=== PATIENT | female | born 1970 | race American Indian/Alaskan Native ===

== ENCOUNTER 2017-03-09 09:03 | Emergency (ER) | payer MEDICAID, OTHER ==
[2017-03-09 10:12] VITALS: BP 155/90
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
== END 2017-03-09 14:51 | disposition home or self-care (01) ==
LOC: ED 09:03
DX: M54.16 Radiculopathy, lumbar region (principal)
CPT/HCPCS: 99281

== ENCOUNTER 2018-05-08 04:45 | Emergency (ER) | payer OTHER ==
[2018-05-08 07:59] LABS: Basophils % (Auto) 0.6 % (0.0-1.8); Eosinophils # (Auto) 0.1 K/mm3 (0.0-0.4); Eosinophils % (Auto) 1.5 % (0.0-4.3); Hematocrit 37.8 % (30.3-42.9); Hemoglobin 12.3 gm/dl (10.1-14.3); Lymphocytes % (Auto) 37.2 % (13.4-35.0); Mean Corpuscular HGB Conc 33 % (30-34); Mean Corpuscular Hemoglobin 26 pg (28-32); Mean Corpuscular Volume 81 fl (79-97); Monocytes # (Auto) 0.3 K/mm3 (0.0-0.8); Monocytes % (Auto) 6.5 % (0.0-7.3); Platelet Count 311 K/mm3 (140-440); Red Blood Count 4.66 M/mm3 (3.65-5.03); Red Cell Distribution Width 15.2 % (13.2-15.2)
[2018-05-08 08:24] LABS: BUN/Creatinine Ratio 22; Blood Urea Nitrogen 13 mg/dL (7-17); Calcium 9.3 mg/dL (8.4-10.2); Hemolysis Index 15
--- NOTE | 2018-05-08 11:00 | Emergency Department Report ---
ED Chest Pain HPI - General Chief Complaint: Chest Pain Stated Complaint: CP Time Seen by Provider: 05/08/18 10:45 Source: patient, EMS Mode of arrival: Ambulatory Limitations: No Limitations - History of Present Illness Initial Comments: 47 yo female, hx of hypothyroidism, with left-sided chest pain 1 month. Patient reports pain feels like a pulled muscle. Patient presented ED this morning because pain moved from left anterior chest left lateral chest on yesterday. Reports same character of pain. States pain wprse w/ palpation and laying on left side. Denies shortness of breath, cough, fever, leg pain, leg swelling, nausea, vomiting, diaphoresis. Patient states she does a lot of lifting of her 4-year-old son and also large bags of laundry which may have contributed to her pain. PCP: Dr Bhupendra SANDOVAL Complaint: chest pain -: month(s) (1) Onset: during rest Pain Location: left chest Pain Radiation: none Severity: mild Quality: pressure ("like I pulled a muscle") Consistency: intermittent Improves With: rest Worsens With: palpation re: denies: nausea, vomting, diaphoresis, dyspnea Other Symptoms: denies: cough, fever, palpitations Treatments Prior to Arrival: none - Related Data Previous Rx's Medication Instructions Recorded Last Taken Type Cetirizine HCl [All Day Allergy] 10 mg PO DAILY #30 capsule 08/14/16 Unknown Rx Diclofenac Potassium 50 mg PO BID #30 tablet 03/09/17 Unknown Rx traMADol [Ultram 50 MG tab] 50 mg PO Q6HR PRN #20 tablet 03/09/17 Unknown Rx Methocarbamol [Robaxin-750] 750 mg PO Q6HR PRN #20 tablet 05/08/18 Unknown Rx Naproxen [Naprosyn] 500 mg PO BID #20 tablet 05/08/18 Unknown Rx Triamcinolone 0.1% [Kenalog 0.1% 1 applic TP TID PRN #1 tube 05/08/18 Unknown Rx CREAM] Allergies Allergy/AdvReac Type Severity Reaction Status Date / Time No Known Allergies Allergy Verified 10/24/13 11:23 Heart Score - HEART Score History: Slightly suspicious EKG: Normal Age: 45-65 Risk factors: No known risk factors Troponin: < normal limit HEART Score: 1 - Critical Actions Critical Actions: 0-3 pts:0.9-1.7%risk of adverse cardiac event.Candidate for discharge ED Review of Systems ROS: Stated complaint: CP Other details as noted in HPI Comment: All other systems reviewed and negative Constitutional: denies: chills, diaphoresis, fever Respiratory: denies: cough, shortness of breath Cardiovascular: chest pain. denies: palpitations Gastrointestinal: denies: abdominal pain, nausea, vomiting Skin: rash ED Past Medical Hx - Past Medical History Previous Medical History?: Yes Hx Hypertension: No Hx Congestive Heart Failure: No Hx Diabetes: No Hx Deep Vein Thrombosis: No Hx Renal Disease: No Hx Sickle Cell Disease: No Hx Seizures: No Hx Asthma: No Hx COPD: No Hx HIV: No Additional medical history: hypothyroidism - Surgical History Past Surgical History?: Yes Additional Surgical History: left wrist, left foot - Social History Smoking Status: Never Smoker Substance Use Type: None - Medications Home Medications: Home Medications Medication Instructions Recorded Confirmed Last Taken Type Cetirizine HCl [All Day Allergy] 10 mg PO DAILY #30 capsule 08/14/16 Unknown Rx Diclofenac Potassium 50 mg PO BID #30 tablet 03/09/17 Unknown Rx traMADol [Ultram 50 MG tab] 50 mg PO Q6HR PRN #20 tablet 03/09/17 Unknown Rx Methocarbamol [Robaxin-750] 750 mg PO Q6HR PRN #20 tablet 05/08/18 Unknown Rx Naproxen [Naprosyn] 500 mg PO BID #20 tablet 05/08/18 Unknown Rx Triamcinolone 0.1% [Kenalog 0.1% 1 applic TP TID PRN #1 tube 05/08/18 Unknown Rx CREAM] ED Physical Exam - General Limitations: No Limitations General appearance: alert, in no apparent distress - Head Head exam: Present: atraumatic, normocephalic - Eye Eye exam: Present: normal appearance - ENT ENT exam: Present: mucous membranes moist - Neck Neck exam: Present: normal inspection - Respiratory Respiratory exam: Present: normal lung sounds bilaterally. Absent: respiratory distress - Cardiovascular Cardiovascular Exam: Present: regular rate, normal rhythm, other (tenderness to left anterior and left lateral chest wall) - GI/Abdominal GI/Abdominal exam: Present: soft. Absent: distended, tenderness - Extremities Exam Extremities exam: Present: normal inspection, full ROM. Absent: pedal edema, calf tenderness - Neurological Exam Neurological exam: Present: alert, oriented X3 - Psychiatric Psychiatric exam: Present: normal affect, normal mood - Skin Skin exam: Present: warm, dry, intact, normal color, rash (area of scaly, hyperpigmentation on right lateraal neck) ED Course Vital Signs 05/08/18 04:59 Temperature 98.6 F Pulse Rate 81 Respiratory 14 Rate Blood Pressure 148/87 O2 Sat by Pulse 98 Oximetry ED Medical Decision Making - Lab Data Result diagrams: 05/08/18 07:24 05/08/18 07:24 - EKG Data -: EKG Interpreted by Me EKG shows normal: sinus rhythm, axis, intervals, QRS complexes Rate: normal - EKG Data Interpretation: no acute changes - Radiology Data Radiology results: pending, image reviewed interpreted by me: negative for any acute findings - Medical Decision Making 47-year-old female with chest wall pain. Normal EKG, normal troponin, normal chest x-ray. Will discharge with anti-inflammatories and muscle relaxer. Advised PCP follow-up. - Differential Diagnosis chest wall pain, costochondritis, ACS, pneumonia Critical care attestation.: If time is entered above; I have spent that time in minutes in the direct care of this critically ill patient, excluding procedure time. ED Disposition Clinical Impression: Chest wall pain, Dermatitis Disposition: - TO HOME OR SELFCARE Is pt being admited?: No Condition: Stable Instructions: Costochondritis (ED) Prescriptions: Methocarbamol [Robaxin-750] 750 mg PO Q6HR PRN #20 tablet PRN Reason: Spasms Naproxen [Naprosyn] 500 mg PO BID #20 tablet Triamcinolone 0.1% [Kenalog 0.1% CREAM] 1 applic TP TID PRN #1 tube PRN Reason: Rash Referrals: PRIMARY CARE, [Primary Care Provider] - 3-5 Days Time of Disposition: 12:11
[2018-05-08 12:20] VITALS: BP 144/88
--- NOTE | 2018-05-08 12:21 | XRay Report ---
FINAL REPORT EXAM: XR CHEST ROUTINE 2V HISTORY: chest pain TECHNIQUE: Frontal and lateral views of the chest. PRIORS: None currently available. FINDINGS: Cardiac silhouette is within normal limits. Aortic calcifications. There is no effusion. There is no pneumothorax. There is no consolidation. There are no suspicious osseous lesions. Scoliosis. IMPRESSION: No acute cardiopulmonary findings.
== END 2018-05-08 12:24 | disposition home or self-care (01) ==
LOC: ED 04:45
DX: R07.89 Other chest pain (principal); L30.8 Other specified dermatitis; E03.9 Hypothyroidism, unspecified
CPT/HCPCS: 36415; 71046; 80048; 84484; 85025; 93005; 93010

== ENCOUNTER 2019-10-22 23:29 | Emergency (ER) | payer OTHER ==
[2019-10-22 23:54] VITALS: BP 145/91
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
[2019-10-23] MEDS ORDERED: AMOXICILLIN/K CLAV 875/125MG TAB PO ONE (00:35)
== END 2019-10-23 01:05 | disposition home or self-care (01) ==
LOC: ED 23:29
DX: S60.512A Abrasion of left hand, initial encounter (principal); S60.812A Abrasion of left wrist, initial encounter; S50.812A Abrasion of left forearm, initial encounter; E03.9 Hypothyroidism, unspecified; Z79.899 Other long term (current) drug therapy; Z98.890 Other specified postprocedural states; W50.3XXA Accidental bite by another person, initial encounter; Y93.89 Activity, other specified; Y92.89 Other specified places as the place of occurrence of the external cause; Y99.8 Other external cause status
CPT/HCPCS: 99282

== ENCOUNTER 2020-06-06 08:01 | Emergency (ER) | payer OTHER ==
[2020-06-06 08:25] VITALS: BP 144/75
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
== END 2020-06-06 11:06 | disposition home or self-care (01) ==
LOC: ED 08:01
DX: S20.229A Contusion of unspecified back wall of thorax, initial encounter (principal); L90.5 Scar conditions and fibrosis of skin; E03.9 Hypothyroidism, unspecified; Z79.899 Other long term (current) drug therapy; Z88.8 Allergy status to other drugs, medicaments and biological substances; Z98.890 Other specified postprocedural states; W50.3XXA Accidental bite by another person, initial encounter; Y93.89 Activity, other specified; Y92.89 Other specified places as the place of occurrence of the external cause; Y99.8 Other external cause status
CPT/HCPCS: 99282

== ENCOUNTER 2021-02-15 11:35 | Emergency (ER) | payer OTHER ==
[2021-02-15 11:53] VITALS: BP 126/69
--- NOTE | 2021-02-15 12:31 | Emergency Department Report ---
ED Extremity Problem HPI - General Chief complaint: Extremity Injury, Lower Stated complaint: back of left knee locks up Time Seen by Provider: 02/15/21 12:03 Source: patient Mode of arrival: Ambulatory Limitations: No Limitations - History of Present Illness Initial comments: 50-year-old -[place] female presents to the emergency room complaining of left knee locking up next 3 weeks. Patient states that when she gets up from sitting to walking is when she starts to have pain in her left knee. Patient states when she is walking around the pain subsides. Patient denies any injuries no falls. Patient denies any fever no chills no swelling to her knee. Patient is taking nothing for pain. Patient reports she is allergic to doxycycline currently takes no medications on a daily basis. MD Complaint: extremity pain Onset/Timin Location: left, knee History of Same: Yes -: Yes arthralgia Radiation: none Severity scale (0 -10): 9 Quality: aching, sharp Consistency: intermittent Improves with: movement Worsens with: other (Getting up from sitting down) Associated Symptoms: denies other symptoms - Related Data Previous Rx's Medication Instructions Recorded Last Taken Type Cetirizine HCl [All Day Allergy] 10 mg PO DAILY #30 capsule 08/14/16 Unknown Rx Diclofenac Potassium 50 mg PO BID #30 tablet 03/09/17 Unknown Rx traMADoL [Ultram 50 MG tab] 50 mg PO Q6HR PRN #20 tablet 03/09/17 Unknown Rx Naproxen [Naprosyn] 500 mg PO BID #20 tablet 05/08/18 Unknown Rx Triamcinolone 0.1% [Kenalog 0.1% 1 applic TP TID PRN #1 tube 05/08/18 Unknown Rx CREAM] methocarbamoL [Robaxin-750] 750 mg PO Q6HR PRN #20 tablet 05/08/18 Unknown Rx Amoxicillin/Potassium Clav 1 each PO BID #14 tablet 10/23/19 Unknown Rx [Augmentin 875-125 Tablet] Amoxicillin/Potassium Clav 1 each PO BID 10 Days #20 tablet 05/02/20 Unknown Rx [Augmentin 875-125 Tablet] Amoxicillin/Potassium Clav 1 each PO BID 7 Days #14 tablet 06/06/20 Unknown Rx [Augmentin 875-125 Tablet] Naproxen [EC-Naproxen] 500 mg PO BID PRN #14 06/06/20 Unknown Rx Neomycin/Bacitracin/Polymyxinb 1 applicatio TP BID #1 oint...g. 06/06/20 Unknown Rx [Triple Antibiotic Ointment] Diclofenac Sodium 50 mg PO TID PRN #15 tablet. 02/15/21 Unknown Rx Allergies Allergy/AdvReac Type Severity Reaction Status Date / Time doxycycline Allergy Hives Verified 02/15/21 11:51 ED Review of Systems ROS: Stated complaint: back of left knee locks up Other details as noted in HPI Comment: All other systems reviewed and negative ED Past Medical Hx - Past Medical History Hx Hypertension: No Hx Congestive Heart Failure: No Hx Diabetes: No Hx Deep Vein Thrombosis: No Hx Renal Disease: No Hx Sickle Cell Disease: No Hx Seizures: No Hx Asthma: No Hx COPD: No Hx HIV: No Additional medical history: hypothyroidism - Surgical History Additional Surgical History: left wrist, left foot, Left ankle - Social History Smoking Status: Never Smoker Substance Use Type: None - Medications Home Medications: Home Medications Medication Instructions Recorded Confirmed Last Taken Type Cetirizine HCl [All Day Allergy] 10 mg PO DAILY #30 capsule 08/14/16 Unknown Rx Diclofenac Potassium 50 mg PO BID #30 tablet 03/09/17 Unknown Rx traMADoL [Ultram 50 MG tab] 50 mg PO Q6HR PRN #20 tablet 03/09/17 Unknown Rx Naproxen [Naprosyn] 500 mg PO BID #20 tablet 05/08/18 Unknown Rx Triamcinolone 0.1% [Kenalog 0.1% 1 applic TP TID PRN #1 tube 05/08/18 Unknown Rx CREAM] methocarbamoL [Robaxin-750] 750 mg PO Q6HR PRN #20 tablet 05/08/18 Unknown Rx Amoxicillin/Potassium Clav 1 each PO BID #14 tablet 10/23/19 Unknown Rx [Augmentin 875-125 Tablet] Amoxicillin/Potassium Clav 1 each PO BID 10 Days #20 tablet 05/02/20 Unknown Rx [Augmentin 875-125 Tablet] Amoxicillin/Potassium Clav 1 each PO BID 7 Days #14 tablet 06/06/20 Unknown Rx [Augmentin 875-125 Tablet] Naproxen [EC-Naproxen] 500 mg PO BID PRN #14 tablet. 06/06/20 Unknown Rx Neomycin/Bacitracin/Polymyxinb 1 applicatio TP BID #1 oint...g. 06/06/20 Unknown Rx [Triple Antibiotic Ointment] Diclofenac Sodium 50 mg PO TID PRN #15 tablet. 02/15/21 Unknown Rx ED Physical Exam - General Limitations: No Limitations General appearance: alert, in no apparent distress - Head Head exam: Present: atraumatic, normocephalic - Eye Eye exam: Present: normal appearance - ENT ENT exam: Present: mucous membranes moist - Neck Neck exam: Present: normal inspection, full ROM - Respiratory Respiratory exam: Absent: accessory muscle use - Cardiovascular Cardiovascular Exam: Present: regular rate - Expanded Lower Extremity Exam Left Knee exam: Present: full ROM, crepidus, full knee extension. Absent: tenderness, swelling, abrasion, laceration, ecchymosis, deformity, dislocation, erythema, effusion, pain w/ pronation/supination, pain/laxity with valgus, pain/laxity with varus Neuro vascular tendon exam: Present: no vascular compromise Gait: Positive: observed and normal - Back Exam Back exam: Present: normal inspection - Neurological Exam Neurological exam: Present: alert, oriented X3, normal gait - Psychiatric Psychiatric exam: Present: normal affect, normal mood - Skin Skin exam: Present: warm, dry, intact, normal color. Absent: rash ED Course Vital Signs 02/15/21 11:51 Temperature 98.4 F Pulse Rate 90 Respiratory 18 Rate Blood Pressure 126/69 [Right] O2 Sat by Pulse 100 Oximetry ED Medical Decision Making - Medical Decision Making 50-year-old -[place] female presents to the emergency room complaining of left knee locking up next 3 weeks. Patient states that when she gets up from sitting to walking is when she starts to have pain in her left knee. Patient states when she is walking around the pain subsides. Patient denies any injuries no falls. Patient denies any fever no chills no swelling to her knee. Patient is taking nothing for pain. Patient reports she is allergic to doxycycline currently takes no medications on a daily basis. Patient appears to have left knee pain with crepitus. No recent falls. Discussed with patient has no imaging required. I did discuss with patient this most likely arthritis as I do feel some crepitus and the fact that pain is worse when she is getting up from sitting down and better with movement. Patient is to follow-up with her primary care provider as well as a referral to orthopedics. Patient verbalized understanding. Critical care attestation.: If time is entered above; I have spent that time in minutes in the direct care of this critically ill patient, excluding procedure time. ED Disposition Clinical Impression: Left anterior knee pain Disposition: DC- TO HOME OR SELFCARE Is pt being admited?: No Does the pt Need Aspirin: No Condition: Stable Instructions: Acute Knee Pain, Adult, [id number] Additional Instructions: Try taking diclofenac's for pain. Sometimes [id number] Aspercreme helps. Follow-up with your primary care provider. Also referred you to orthopedic provider as well. Prescriptions: Diclofenac Sodium 50 mg PO TID PRN #15 tablet.dr SALMON Reason: Pain Referrals: AMINAH CARO MD [Staff Physician] - 3-5 Days HORTENCIA CAIN MD [Referring] - 3-5 Days Forms: Work/School Release Form(ED)
== END 2021-02-15 13:01 | disposition home or self-care (01) ==
LOC: ED 11:35
DX: M25.562 Pain in left knee (principal); Z98.890 Other specified postprocedural states; Z79.2 Long term (current) use of antibiotics; Z79.899 Other long term (current) drug therapy; Z88.8 Allergy status to other drugs, medicaments and biological substances
CPT/HCPCS: 99281